=== PATIENT | male | born 1965 | race Caucasian/White ===

== ENCOUNTER 2018-08-27 19:31 | Emergency (ER) | payer OTHER ==
[~2018-08-27] VITALS: Ht 177.8 cm; Wt 104.3 kg
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
== END 2018-08-27 22:34 | disposition home or self-care (01) ==
LOC: ER 19:31
DX: M54.2 Cervicalgia (principal); S16.1XXA Strain of muscle, fascia and tendon at neck level, initial encounter; V43.52XA Car driver injured in collision with other type car in traffic accident, initial encounter; Y92.488 Other paved roadways as the place of occurrence of the external cause; Z98.1 Arthrodesis status
CPT/HCPCS: 72050; 99283